=== PATIENT | female | born 1935 | race Native Hawaiian/Other Pacific Islander ===

== ENCOUNTER 2020-03-30 10:29 | Emergency (ER) | payer OTHER, BC ==
[2020-03-30] VITALS (14 sets, daily range): BP systolic 131–177; BP diastolic 49–93; TEMP 98.5
[~2020-03-30] VITALS: Ht 162.6 cm; Wt 113.4 kg
[2020-03-30 11:14] LABS: PLATELET COUNT 305 K/uL (152-353)
[2020-03-30 11:29] LABS: PARTIAL THROMBOPLASTIN TIME 24.7 SECONDS (24.5-33.6)
[2020-03-30 11:31] LABS: POTASSIUM 2.8 mmol/L (3.6-5.2); SODIUM 131 mmol/L (136-145)
[2020-03-30] MEDS ORDERED: TRIA75TA61 PO (11:41)
[2020-03-30] MEDS ORDERED: JANUVIA100 MG PO (11:41)
[2020-03-30] MEDS ORDERED: BYSTOLIC5 MG PO (11:41)
[2020-03-30] MEDS ORDERED: NEURONTIN 100M100 MG PO ×2 (11:42)
[2020-03-30] MEDS ORDERED: OIL OF OREGAN1500 MG PO (11:43)
[2020-03-30] MEDS ORDERED: TRAMADOL HYDROC50 MG PO (11:43)
[2020-03-30] MEDS ORDERED: CETI10TA PO (11:43)
[2020-03-30] MEDS ORDERED: MAGNESIUM500 M2 PO (11:44)
[2020-03-30] MEDS ORDERED: ASPIRIN81 M1 PO (11:44)
[2020-03-30] MEDS ORDERED: VITAMIN D31000 UNI4 PO (11:44)
[2020-03-30] MEDS ORDERED: FURO40TA93 PO (11:45)
[2020-03-30] MEDS ORDERED: AMLODIPINE BESYLATE PO ×2 (11:45)
[2020-03-30] MEDS ORDERED: EUTHYROX75 MCG PO (11:46)
[2020-03-30] MEDS ORDERED: TYLENOL PM PO (11:49)
== END 2020-03-30 17:00 | disposition still patient (30) ==
LOC: ED 10:29 → MED/SURG 12:30 → ED 12:30
PROVIDERS: Hospitalist
PROC: 0T9B70Z Drainage of Bladder with Drainage Device, Via Natural or Artificial Opening (ICD-10-PCS; principal; 2020-03-30)
DX: N17.9 Acute kidney failure, unspecified (principal); F03.90 Unspecified dementia, unspecified severity, without behavioral disturbance, psychotic disturbance, mood disturbance, and anxiety; E86.0 Dehydration; I50.9 Heart failure, unspecified; Z03.818 Encounter for observation for suspected exposure to other biological agents ruled out
CPT/HCPCS: 51702; 80053; 80320; 81000; 82550; 83880; 84484; 85027; 85610; 85730; 87635; 87651; 93005; 96360; 99284; U0003

== ENCOUNTER 2020-04-25 13:04 | Inpatient (IN) | payer OTHER, BC ==
[~2020-04-25 13:04] MED LIST: AMLODIPINE BESYLATE PO; ASPIRIN81 M1 PO; BYSTOLIC5 MG PO; CETI10TA PO; EUTHYROX75 MCG PO; FURO40TA93 PO; JANUVIA100 MG PO; MAGNESIUM500 M2 PO; NEURONTIN 100M100 MG PO; OIL OF OREGAN1500 MG PO; TRAMADOL HYDROC50 MG PO; TRIA75TA61 PO; TYLENOL PM PO; VITAMIN D31000 UNI4 PO
== END 2020-05-05 10:57 | disposition still patient (30) ==
LOC: PAVC 13:04
PROVIDERS: ADMIT Family Medicine; ATTEND Family Medicine
DX: U07.1 COVID-19 (principal); I48.91 Unspecified atrial fibrillation; M62.81 Muscle weakness (generalized); R26.81 Unsteadiness on feet; R27.9 Unspecified lack of coordination; Z74.1 Need for assistance with personal care; R13.11 Dysphagia, oral phase; R48.8 Other symbolic dysfunctions; E11.9 Type 2 diabetes mellitus without complications; N18.5 Chronic kidney disease, stage 5
CPT/HCPCS: 80053; 81000; 83036; 84443; 85027; 87077; 87081; 87086; 87088; 87186

== ENCOUNTER 2020-04-26 08:45 | Outpatient (CLI) | payer OTHER, BC ==
[2020-04-26 09:17] LABS: PLATELET COUNT 242 K/uL (152-353)
[2020-04-26 09:30] LABS: POTASSIUM 3.8 mmol/L (3.6-5.2)
== END 2020-04-26 19:05 | disposition home or self-care (01) ==
LOC: LAB 08:45
PROVIDERS: ATTEND Family Medicine
DX: E11.9 Type 2 diabetes mellitus without complications (principal); N18.5 Chronic kidney disease, stage 5; I48.91 Unspecified atrial fibrillation; E03.8 Other specified hypothyroidism
CPT/HCPCS: 80053; 81000; 85027; 87077; 87081; 87086; 87088; 87186

== ENCOUNTER 2020-05-05 11:26 | Inpatient (IN) | payer OTHER, BC | END 2020-06-05 11:41 | disposition still patient (30) | LOC: PAVC 11:26 | PROVIDERS: ADMIT Family Medicine; ATTEND Family Medicine | DX: U07.1 COVID-19 (principal); I48.91 Unspecified atrial fibrillation; M62.81 Muscle weakness (generalized); R26.81 Unsteadiness on feet; R27.9 Unspecified lack of coordination; Z74.1 Need for assistance with personal care; R13.11 Dysphagia, oral phase; R48.8 Other symbolic dysfunctions; N18.5 Chronic kidney disease, stage 5 ==